=== PATIENT | female | born 1960 | race Caucasian/White ===

== ENCOUNTER 2020-03-23 08:33 | Emergency (ER) | payer OTHER ==
[~2020-03-23] VITALS: Ht 167.6 cm; Wt 60.8 kg
[2020-03-23 08:50] VITALS: BP 150/99; Ht 167.6 cm; Wt 60.8 kg
== END 2020-03-23 09:24 | disposition home or self-care (01) ==
LOC: ED 08:33
DX: F41.9 Anxiety disorder, unspecified (principal); E03.9 Hypothyroidism, unspecified; I48.91 Unspecified atrial fibrillation; F17.210 Nicotine dependence, cigarettes, uncomplicated
CPT/HCPCS: 99406